=== PATIENT | female | born 1960 | race Caucasian/White ===

== ENCOUNTER 2016-06-30 05:05 | Day surgery (SDC) | payer OTHER ==
[~2016-06-30 05:05] MED LIST: ADVIL PO; AMOXIL500 MG PO; C5 PO; CARDCD180 PO; CORDARONE PO; ELIQUIS 5 MG TAB5 MG PO; FLEX PO; GOODY'S HEADAC1 EACH PO; IBU800 PO; IRON325 MG PO; LORTAB 5 PO; NEUR300 PO; NORCO1 TA1 PO; NORV5 PO; NUCYNTA50 MG PO; OXYIR5 MG PO; REFRESH OP; SENTAB PO; TAMBOCOR PO; VALERIAN PO
== END 2016-06-30 07:02 | disposition home or self-care (01) ==
LOC: SDC 05:05
PROVIDERS: Orthopaedic Surgery Orthopaedic Surgery of the Spine
PROC: 3E0S3BZ Introduction of Anesthetic Agent into Epidural Space, Percutaneous Approach (ICD-10-PCS; 2016-06-30)
PROC: 3E0S33Z Introduction of Anti-inflammatory into Epidural Space, Percutaneous Approach (ICD-10-PCS; principal; 2016-06-30 07:00)
DX: M54.17 Radiculopathy, lumbosacral region (principal); M54.5 Low back pain; D64.9 Anemia, unspecified; D66 Hereditary factor VIII deficiency; F41.9 Anxiety disorder, unspecified; F32.9 Major depressive disorder, single episode, unspecified; Q76.0 Spina bifida occulta; I49.9 Cardiac arrhythmia, unspecified; I48.91 Unspecified atrial fibrillation; Z87.01 Personal history of pneumonia (recurrent); Z98.890 Other specified postprocedural states; Z87.09 Personal history of other diseases of the respiratory system; Z79.899 Other long term (current) drug therapy; Z79.891 Long term (current) use of opiate analgesic; Z88.5 Allergy status to narcotic agent; Z91.040 Latex allergy status; Z91.09 Other allergy status, other than to drugs and biological substances
CPT/HCPCS: 74420; J2250; J2597; J3010; J7201; Q9967